=== PATIENT | female | born 1955 | race Caucasian/White ===

== ENCOUNTER 2019-03-10 07:05 | Day surgery (SDC) | payer MEDICARE, OTHER ==
[2019-03-10] MEDS ORDERED: PROPOFOL 20 ML ×2 (08:29)
[2019-03-10] MEDS ORDERED: LIDOCAINE 2% (SDV) 5 ML INJ (08:29)
[2019-03-10] MEDS ORDERED: ONDANSETRON 4 MG INJ IV (08:30)
== END 2019-03-10 11:00 | disposition home or self-care (01) ==
LOC: GIL 07:05
DX: Z12.11 Encounter for screening for malignant neoplasm of colon (principal); K63.5 Polyp of colon; K57.30 Diverticulosis of large intestine without perforation or abscess without bleeding; K64.8 Other hemorrhoids; I10 Essential (primary) hypertension; E78.5 Hyperlipidemia, unspecified
CPT/HCPCS: 45380; 88305